=== PATIENT | male | born 1965 | race American Indian/Alaskan Native ===

== ENCOUNTER 2018-03-22 00:51 | Emergency (ER) | payer MEDICARE, MEDICAID ==
[2018-03-22 02:26] VITALS: BP 124/87
[2018-03-22 04:29] LABS: Bilirubin,Urine NEG (Negative); Blood,Urine NEG (Negative); Color,Urine Yellow (Yellow); Mucus,Urine FEW /HPF; Protein,Urine <15 mg/dL mg/dL (Negative); Urobilinogen,Urine < 2.0 mg/dL (<2.0)
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
[2018-03-22] MEDS ORDERED: TORADOL IM ONE (05:38)
== END 2018-03-22 06:07 | disposition home or self-care (01) ==
LOC: ED 00:51
DX: G89.29 Other chronic pain (principal); M54.9 Dorsalgia, unspecified; R51 Headache; I10 Essential (primary) hypertension; E78.00 Pure hypercholesterolemia, unspecified; Z87.891 Personal history of nicotine dependence
CPT/HCPCS: 81001; 96372; 99283; J1885

== ENCOUNTER 2021-04-26 12:29 | Inpatient (IN) | payer MEDICARE ==
[2021-04-26] MEDS ORDERED: IBUPROFEN 600 MG TAB PO ONE (13:32)
[2021-04-26 14:13] LABS: Basophils # (Auto) 0.1 K/mm3 (0.0-0.1); Basophils % (Auto) 0.7 % (0.0-1.8); Eosinophils # (Auto) 0.1 K/mm3 (0.0-0.4); Eosinophils % (Auto) 1.1 % (0.0-4.3); Hematocrit 40.2 % (35.5-45.6); Hemoglobin 13.7 gm/dl (11.8-15.2); Lymphocytes # (Auto) 1.7 K/mm3 (1.2-5.4); Lymphocytes % (Auto) 16.4 % (13.4-35.0); Mean Corpuscular HGB Conc 34 % (32-34); Mean Corpuscular Volume 81 fl (84-94); Monocytes # (Auto) 0.5 K/mm3 (0.0-0.8); Monocytes % (Auto) 4.9 % (0.0-7.3); Platelet Count 393 K/mm3 (140-440); Red Blood Count 4.96 M/mm3 (3.65-5.03); Red Cell Distribution Width 15.8 % (13.2-15.2)
--- NOTE | 2021-04-26 15:08 | Event Note ---
ED Screening Note Date of service: 04/26/21 Time: 14:00 ED Screening Note: Patient is a 55-year-old -[place] Citizen male with a history of hyperlipidemia and chronic left foot ulcerated wound who presents to the ED with acute exacerbation of his chronic left foot pain and swelling with purulent discharge for the last 1 week, worse in the last 2 days. Patient states that he was initially evaluated by his primary care physician who advised her to come to the ED because of the worsening swelling and pain of left foot with significant discoloration. Patient denies traumatic injury, fever, chills, nausea, vomiting, diarrhea, numbness and tingling or weakness of left foot, heavy lifting, chest pain or shortness of breath. This initial assessment/diagnostic orders/clinical plan/treatment(s) is/are subject to change based on patients health status, clinical progression and re-assessment by fellow clinical providers in the ED. Further treatment and workup at subsequent clinical providers discretion. Patient/guardian urged not to elope from the ED as their condition may be serious if not clinically assessed and managed. Initial orders include: CBC, CMP, lactic acid, left foot x-ray, left ankle x-ray
--- NOTE | 2021-04-26 21:31 | Emergency Department Report ---
ED Extremity Problem HPI - General Chief complaint: Extremity Problem,Nontraumatic Stated complaint: LT FOOT INFECTION Time Seen by Provider: 04/26/21 21:24 Source: patient Mode of arrival: Wheelchair Limitations: No Limitations - History of Present Illness Initial comments: Patient is a 55-year-old male who presents emergency room with complaints of le ft foot swelling. Patient's left foot swelling been going on for 3 weeks. Patient states it is worsening. Patient states the left foot is warm to touch and is having extreme pain. Patient states the pain is from his upper ankle down to his foot. Patient states that his primary care evaluate him today and sent him here to be evaluated. Patient states the pain is an 8 out of 10. He states the pain is better with rest and worse with movement and palpation. Patient denies fever or chills. Patient denies nausea vomiting. Patient denies calf. Patient denies chest pain or shortness of breath. Patient denies recent travel. Patient denies recent international travel. Patient denies exposure to the novel coronavirus. Patient denies sick contacts. Patient denies fever and chills. Patient denies cough. Patient denies diarrhea. Patient denies coming in contact with anybody with symptoms of the novel coronavirus. MD Complaint: extremity pain, extremity swelling -: Sudden Location: left, lower extremity History of Same: No Radiation: none Severity scale (0 -10): 8 Quality: stabbing Consistency: constant Improves with: rest Worsens with: weight bearing, walking, palpation Associated Symptoms: denies other symptoms. denies: chest pain, shortness of breath, fever, myalgias, arthralgias, rash - Related Data Previous Rx's Medication Instructions Recorded Last Taken Type Acetaminophen/Codeine [Tylenol #3] 1 tab PO Q6H PRN #20 tab 10/29/15 Unknown Rx Sulfamethoxazole/Trimethoprim 1 each PO BID #20 tablet 10/29/15 Unknown Rx [Bactrim DS TAB] cephALEXin [Keflex] 500 mg PO Q12HR #20 cap 10/29/15 Unknown Rx Ibuprofen [Motrin 800 MG tab] 800 mg PO Q8HR PRN #30 tablet 03/22/18 Unknown Rx Allergies Allergy/AdvReac Type Severity Reaction Status Date / Time No Known Allergies Allergy Unverified 12/25/14 09:12 ED Review of Systems ROS: Stated complaint: LT FOOT INFECTION Other details as noted in HPI Constitutional: denies: chills, fever Eyes: denies: eye pain, eye discharge, vision change ENT: denies: ear pain, throat pain Respiratory: denies: cough, shortness of breath, wheezing Cardiovascular: denies: chest pain, palpitations Endocrine: no symptoms reported Gastrointestinal: denies: abdominal pain, nausea, diarrhea Genitourinary: denies: urgency, dysuria Musculoskeletal: as per HPI. denies: back pain, joint swelling, arthralgia Skin: denies: rash, lesions Neurological: denies: headache, weakness, paresthesias Psychiatric: denies: anxiety, depression Hematological/Lymphatic: denies: easy bleeding, easy bruising ED Past Medical Hx - Past Medical History Previous Medical History?: Yes Additional medical history: High cholesterol - Surgical History Past Surgical History?: No - Family History Family history: no significant - Social History Smoking Status: Current Every Day Smoker Substance Use Type: None - Medications Home Medications: Home Medications Medication Instructions Recorded Confirmed Last Taken Type Acetaminophen/Codeine [Tylenol #3] 1 tab PO Q6H PRN #20 tab 10/29/15 Unknown Rx Sulfamethoxazole/Trimethoprim 1 each PO BID #20 tablet 10/29/15 Unknown Rx [Bactrim DS TAB] cephALEXin [Keflex] 500 mg PO Q12HR #20 cap 10/29/15 Unknown Rx Ibuprofen [Motrin 800 MG tab] 800 mg PO Q8HR PRN #30 tablet 03/22/18 Unknown Rx ED Physical Exam - General Limitations: No Limitations General appearance: alert, in no apparent distress - Head Head exam: Present: atraumatic, normocephalic - Eye Eye exam: Present: normal appearance - ENT ENT exam: Present: mucous membranes moist - Neck Neck exam: Present: normal inspection - Respiratory Respiratory exam: Present: normal lung sounds bilaterally. Absent: respiratory distress - Cardiovascular Cardiovascular Exam: Present: regular rate, normal rhythm. Absent: systolic murmur, diastolic murmur, rubs, gallop - GI/Abdominal GI/Abdominal exam: Present: soft, normal bowel sounds - Rectal Rectal exam: Present: deferred - Extremities Exam Extremities exam: Present: normal inspection (Except for left lower extremity), tenderness (Tenderness to palpation to the left foot and ankle), pedal edema (On left) - Back Exam Back exam: Present: normal inspection - Neurological Exam Neurological exam: Present: alert, oriented X3 - Psychiatric Psychiatric exam: Present: normal affect, normal mood - Skin Skin exam: Present: warm, dry, intact, normal color. Absent: rash ED Course Vital Signs 04/26/21 04/26/21 04/26/21 13:22 21:45 23:00 Temperature 98.4 F Pulse Rate 108 H 107 H 107 H Respiratory 18 18 20 Rate Blood Pressure 163/101 Blood Pressure 135/93 150/97 [Left] O2 Sat by Pulse 95 98 99 Oximetry 04/27/21 00:17 Temperature Pulse Rate 106 H Respiratory 20 Rate Blood Pressure Blood Pressure 130/93 [Left] O2 Sat by Pulse 97 Oximetry - Reevaluation(s) Reevaluation #1: I discussed all results with patient. I discussed plan of care with patient. Patient agrees with plan of care and admission. Patient to be admitted to the ospitalist service. Patient will be given Dilaudid. Patient given Zosyn and Vanco IV. 04/27/21 00:03 - Consultations Consultation #1: Hospitalist consulted for admission. Hospitalist to admit patient. 04/27/21 00:03 ED Medical Decision Making - Lab Data Result diagrams: 04/26/21 13:59 04/26/21 13:59 - Radiology Data Radiology results: report reviewed, image reviewed EXAMINATION: Left ankle radiograph, 3 views, 04/26/2021 CLINICAL INFORMATION: Left ankle pain and swelling. Evaluate for osteomyelitis. COMPARISON: None. FINDINGS: There are marked erosive changes of the distal tibia and fibula and midfoot with associated soft tissue swelling. IMPRESSION: 1. Extensive erosive changes of the left ankle. Osteomyelitis would be a consideration. DUPLEX DOPPLER LOWER EXTREMITY VEINS, LEFT INDICATION: Left lower extremity pain. TECHNIQUE: Duplex doppler imaging was performed through the veins of the left lower extremity using venous compression and other maneuvers. COMPARISON: None FINDINGS: Common Femoral vein: Negative. Superficial Femoral vein: Negative. Popliteal vein: Negative. Calf veins: Negative. Additional findings: Prominent lymph nodes are noted in the left inguinal region. The largest measures 3.2 x 1.7 cm in short axis IMPRESSION: 1. No sonographic evidence for DVT in the left lower extremity. - Medical Decision Making Patient is a 55-year-old male who comes emergency room with complaints of left foot and ankle pain. Patient states the pain to be gone for 3 weeks. Patient states his pain is swelling is worsening. Patient states primary care sent him for evaluation. Patient had labs done which were essentially unremarkable. Patient had an x-ray shows findings consistent with osteomyelitis. Patient had an ultrasound to rule out a DVT and it was negative for DVT. Patient given broad-spectrum antibiotics to cover osteomyelitis of Zosyn and bank. Patient given fluids. Patient given pain medications. Patient's vital signs are stable in the ER. Patient had blood cultures done. Patient admitted to the hospital service for further evaluation treatment Critical care time documented due to the multiple reassessments, prolonged time at the bedside, interpretation of diagnostics and labs. - Differential Diagnosis Cellulitis, foot pain, ankle pain, DVT, osteomyelitis, fracture, strain, Critical Care Time: Yes Critical care time in (mins) excluding proc time.: 35 Critical care attestation.: If time is entered above; I have spent that time in minutes in the direct care of this critically ill patient, excluding procedure time. Critical Care Time: 35 MINUTES ED Disposition Clinical Impression: Foot pain, left, Swelling of left lower extremity Left ankle pain Qualifiers: Chronicity: acute Qualified Code(s): M25.572 - Pain in left ankle and joints of left foot Osteomyelitis Qualifiers: Osteomyelitis type: unspecified type Osteomyelitis location: ankle Laterality: left Qualified Code(s): M86.9 - Osteomyelitis, unspecified Disposition: OP ADMIT IP TO THIS HOSP Is pt being admited?: Yes Does the pt Need Aspirin: No Condition: Critical Time of Disposition: 23:44
--- NOTE | 2021-04-26 23:17 | Vascular Lab Report ---
DUPLEX DOPPLER LOWER EXTREMITY VEINS, LEFT INDICATION: Left lower extremity pain. TECHNIQUE: Duplex doppler imaging was performed through the veins of the left lower extremity using venous compr ession and other maneuvers. COMPARISON: None FINDINGS: Common Femoral vein: Negative. Superficial Femoral vein: Negative. Popliteal vein: Negative. Calf veins: Negative. Additional findings: Prominent lymph nodes are noted in the left inguinal region. The largest measure s 3.2 x 1.7 cm in short axis IMPRESSION: 1. No sonographic evidence for DVT in the left lower extremity. Signer Name: Rosanne Martinez MD Signed: 04/26/2021 11:12 PM Workstation Name: [id number]
--- NOTE | 2021-04-26 23:35 | XRay Report ---
EXAMINATION: Left ankle radiograph, 3 views, 04/26/2021 CLINICAL INFORMATION: Left ankle pain and swelling. Evaluate for osteomyelitis. COMPARISON: None. FINDINGS: There are marked erosive changes of the distal tibia and fibula and midfoot with associated soft tissue swelling. IMPRESSION: 1. Extensive erosive changes of the left ankle. Osteomyelitis would be a consideration. Signer Name: Rosanne Martinez MD Signed: 04/26/2021 11:30 PM Workstation Name: [id number]
--- NOTE | 2021-04-26 23:36 | XRay Report ---
EXAMINATION: Left foot radiograph, 3 views, 04/26/2021 CLINICAL INFORMATION: Left foot and ankle pain and swelling. Evaluate for osteomyelitis. COMPARISON: Left ankle radiograph, 3 views FINDINGS: There are marked erosive changes of the distal tibia and fibula and mid foot with associate d soft tissue swelling IMPRESSION: 1. Erosive changes of the left foot and ankle with associated soft tissue swelling. Osteomyelitis wo uld be a consideration. Signer Name: Rosanne Martinez MD Signed: 04/26/2021 11:31 PM Workstation Name: [id number]
[2021-04-26] MEDS ORDERED: SODIUM CHLORIDE 0.9% 500 ML 500 ML IV ONE (23:47)
[2021-04-26] MEDS ORDERED: HYDROmorphone 1 MG/1 ML INJ IV ONE (23:47)
[2021-04-26] MEDS ORDERED: ONDANSETRON 4 MG/2 ML INJ IV ONE (23:47)
[2021-04-27] MEDS ORDERED: VANCOMYCIN/NS 1 GM/250 ML 1 GM/250 ML BAG IV ONE (00:02)
[2021-04-27] MEDS ORDERED: PIPERACIL/TAZOBACTA 4.5/NS 100 4.5 GM/100 ML VIAL IV ONE (00:02)
--- NOTE | 2021-04-27 00:25 | History and Physical Report ---
History of Present Illness Date of examination: 04/27/21 Date of admission: 04/26/21 Chief complaint: left foot pain and infection History of present illness: Patient is a 55-year-old male who presents emergency room with complaints of left foot swelling. Patient's left foot swelling been going on for 3 weeks. Patient states it is worsening. Patient states the left foot is warm to touch and is having extreme pain. Patient states the pain is from his upper ankle down to his foot. Patient states that his primary care evaluate him today and sent him here to be evaluated. Patient states the pain is an 8 out of 10. He states the pain is better with rest and worse with movement and palpation. Patient denies fever or chills. Patient denies nausea vomiting. Patient denies calf. Patient denies chest pain or shortness of breath. ED work-up shows a WBC 10.6 hemoglobin 13.7 platelets 393 hemoglobin A1c 6.3 and lactic acid 1.8. Patient seen in ED at bedside. He reported pain level of 10/10 on his left ankle and foot. Patient is started on vancomycin and Zosyn ID consulted. Patient reported a saw that he had surgery on the left ankle 2013 and 2015. I reviewed the patient medical record vital signs and the medication record.Left foot x-ray done showed erosive changes of the left foot and ankle with soft tissue swelling. X-ray of the ankle left showed also extensive erosive changes possible osteomyelitis considered. Past History Past Medical History: hyperlipidemia Past Surgical History: total knee replacement Social history: smoking Family history: diabetes, hypertension Medications and Allergies Allergies Allergy/AdvReac Type Severity Reaction Status Date / Time No Known Allergies Allergy Unverified 12/25/14 09:12 Home Medications Medication Instructions Recorded Confirmed Last Taken Type Acetaminophen/Codeine [Tylenol #3] 1 tab PO Q6H PRN #20 tab 10/29/15 04/27/21 Unknown Rx Sulfamethoxazole/Trimethoprim 1 each PO BID #20 tablet 10/29/15 04/27/21 Unknown Rx [Bactrim DS TAB] cephALEXin [Keflex] 500 mg PO Q12HR #20 cap 10/29/15 04/27/21 Unknown Rx Ibuprofen [Motrin 800 MG tab] 800 mg PO Q8HR PRN #30 tablet 03/22/18 04/27/21 Unknown Rx Active Meds: Active Medications Piperacillin Sod/Tazobactam Sod (Zosyn/Ns 4.5gm/100ml) 4.5 gm in 100 mls @ 200 mls/hr IV ONCE ONE; Protocol Stop: 04/27/21 00:31 Vancomycin HCl (Vancomycin/Ns 1 Gm/250 Ml) 1 gm in 250 mls @ 167.007 mls/hr IV ONCE ONE; Protocol Stop: 04/27/21 01:31 Review of Systems Ears, nose, mouth and throat: no epistaxis, no bleeding gums Cardiovascular: no chest pain Respiratory: no wheezing Gastrointestinal: no melena Genitourinary Male: no dysuria Rectal: no itching, no hemorrhoids Musculoskeletal: other (left foot/ankle pain) Integumentary: no rash, no pruritis Neurological: no head injury Hematologic/Lymphatic: no easy bruising, no easy bleeding Allergic/Immunologic: no urticaria Exam - Constitutional Vitals: Temp Pulse Resp BP Pulse Ox 98.4 F 106 H 20 130/93 97 04/26/21 13:22 04/27/21 00:17 04/27/21 00:17 04/27/21 00:17 04/27/21 00:17 General appearance: Present: mild distress, obese - EENT Eyes: Present: PERRL ENT: hearing intact, clear oral mucosa - Neck Neck: Present: supple, normal ROM - Respiratory Respiratory effort: normal Respiratory: bilateral: CTA - Cardiovascular Heart Sounds: Present: S1 & S2. Absent: rub, click - Extremities Extremities: pulses symmetrical, No edema Peripheral Pulses: within normal limits - Abdominal General gastrointestinal: Present: soft, non-tender, non-distended, normal bowel sounds Male genitourinary: Present: normal - Integumentary Integumentary: Present: clear, warm, dry - Musculoskeletal Musculoskeletal: strength equal bilaterally, generalized weakness - Psychiatric Psychiatric: appropriate mood/affect, intact judgment & insight, cooperative - Neurologic Neurologic: CNII-XII intact, moves all extremities - Allied Health Allied health notes reviewed: nursing Results - Labs CBC & Chem 7: 04/26/21 13:59 04/26/21 13:59 Labs: Abnormal lab results 04/26/21 Range/Units 13:59 MCV 81 L (84-94) fl RDW 15.8 H (13.2-15.2) % Seg Neutrophils % 76.9 H (40.0-70.0) % Seg Neutrophils # 8.1 H (1.8-7.7) K/mm3 Assessment and Plan - Patient Problems (1) Osteomyelitis Current Visit: Yes Status: Acute Qualifiers: Osteomyelitis type: unspecified type Osteomyelitis location: ankle Laterality: left Qualified Code(s): M86.9 - Osteomyelitis, unspecified Plan to address problem: Started on vancomycin and Zosyn Blood culture follow-up with result ID consult Left foot x-ray done showed erosive changes of the left foot and ankle with soft tissue swelling. X-ray of the ankle left showed also extensive erosive changes possible osteomyelitis considered. (2) Hyperlipidemia Current Visit: Yes Status: Acute Plan to address problem: Patient has a history of hyperlipidemia Resume statin Checked hemoglobin A1c - 6.3 (3) Left ankle pain Current Visit: Yes Status: Acute Qualifiers: Chronicity: acute Qualified Code(s): M25.572 - Pain in left ankle and joints of left foot Plan to address problem: Pain management as needed Bilateral leg ultrasound done no acute finding/DVT (4) Full code status Current Visit: Yes Status: Acute Plan to address problem: Patient is a full code (5) DVT prophylaxis Current Visit: Yes Status: Acute Plan to address problem: Subcutaneous heparin
[2021-04-27] MEDS ORDERED: ACETAMINOPHEN 325 MG TAB PO PRN (00:29)
[2021-04-27] MEDS ORDERED: ONDANSETRON 4 MG/2 ML INJ IV PRN (00:29)
[2021-04-27] MEDS ORDERED: ALUM-MAG HYDROXIDE-SIMETHICONE 200-200-20MG/5ML ORAL LIQD 30 ML PO PRN (00:29)
[2021-04-27] MEDS ORDERED: MAGNESIUM HYDROXIDE (MOM) ORAL LIQD UDC PO PRN (00:29)
[2021-04-27] MEDS ORDERED: hydrALAZINE 20 MG/1 ML INJ IV PRN (00:33)
[2021-04-27] MEDS ORDERED: traMADol 50 MG TAB PO PRN (00:33)
[2021-04-27] MEDS ORDERED: VANCOMYCIN 2,000 MG in SODIUM CHLORIDE 0.9% 500 ML 500 ML IV ONE (02:45)
[2021-04-27] MEDS: traZODone 50 MG TAB PO PRN (02:55)
[2021-04-27] MEDS ORDERED: MORPHINE 2 MG/1 ML INJ IV ONE (03:42)
[2021-04-27] MEDS: HYDROmorphone 1 MG/1 ML INJ IV PRN ×4 (11:02→21:16)
[2021-04-27] MEDS: HEPARIN 5,000 UNIT/1 ML VIAL SUB-Q SCH ×2 (11:04→21:16)
--- NOTE | 2021-04-27 15:31 | Consultation ---
History of Present Illness Consult date: 04/27/21 - History of present illness History of present illness: 55 year old male presents to ED with left angle and foot pain and swelling. He says it has been like this for the last several weeks, but says he gets pain and swelling off and on for year since he had left foot and ankle surgery where he says pins were placed and he had a complicated post op course with a wound that was difficult to close. What he says is new and unusual compared to previous fla re ups is the skin on his foot and ankle became dark. He had duplex studies and xrays done ED that showed osteomyelitis and no signs of DVT. Past History Past Medical History: hyperlipidemia Past Surgical History: total knee replacement Social history: smoking Family history: diabetes, hypertension Medications and Allergies Allergies Allergy/AdvReac Type Severity Reaction Status Date / Time No Known Allergies Allergy Unverified 12/25/14 09:12 Home Medications Medication Instructions Recorded Confirmed Last Taken Type Acetaminophen/Codeine [Tylenol #3] 1 tab PO Q6H PRN #20 tab 10/29/15 04/27/21 Unknown Rx Sulfamethoxazole/Trimethoprim 1 each PO BID #20 tablet 10/29/15 04/27/21 Unknown Rx [Bactrim DS TAB] cephALEXin [Keflex] 500 mg PO Q12HR #20 cap 10/29/15 04/27/21 Unknown Rx Ibuprofen [Motrin 800 MG tab] 800 mg PO Q8HR PRN #30 tablet 03/22/18 04/27/21 Unknown Rx Active Meds: Active Medications Acetaminophen (Acetaminophen 325 Mg Tab) 650 mg PO Q4H PRN PRN Reason: Pain MILD(1-3)/Fever >100.5/MCNALLY Al Hydrox/Mg Hydrox/Simethicone (Alum-Mag Hydroxide-Simethicone [id number]/5ml Oral Liqd 30 Ml) 30 ml PO Q4H PRN PRN Reason: Indigestion Atorvastatin Calcium (Atorvastatin 40 Mg Tab) 40 mg PO QHS [facility] Heparin Sodium (Porcine) (Heparin 5,000 Unit/1 Ml Vial) 5,000 unit SUB-Q Q12HR [facility] Last Admin: 04/27/21 11:04 Dose: 5,000 unit Documented by: Hydralazine HCl (Hydralazine 20 Mg/1 Ml Inj) 5 mg IV Q4H PRN PRN Reason: Hypertension Hydromorphone HCl (Hydromorphone 1 Mg/1 Ml Inj) 0.5 mg IV Q3H PRN PRN Reason: Pain , Severe (7-10) Last Admin: 04/27/21 14:41 Dose: 0.5 mg Documented by: Magnesium Hydroxide (Magnesium Hydroxide (Mom) Oral Liqd Udc) 30 ml PO Q4H PRN PRN Reason: Constipation Last Admin: 04/27/21 11:08 Dose: 30 ml Documented by: Ondansetron HCl (Ondansetron 4 Mg/2 Ml Inj) 4 mg IV Q8H PRN PRN Reason: Nausea And Vomiting Sodium Chloride (Sodium Chloride 0.9% 10 Ml Flush Syringe) 10 ml IV PRN PRN PRN Reason: LINE FLUSH Tramadol HCl (Tramadol 50 Mg Tab) 50 mg PO Q4H PRN PRN Reason: Pain, Moderate (4-6) Trazodone HCl (Trazodone 50 Mg Tab) 50 mg PO QHS PRN PRN Reason: Insomnia Last Admin: 04/27/21 02:55 Dose: 50 mg Documented by: Review of Systems All systems: negative - Muskuloskeletal left: ankle pain, ankle swelling, foot stiffness, foot pain, foot swelling Exam Vital Signs Temp Pulse Resp BP Pulse Ox 98.4 F 108 H 18 163/101 95 04/26/21 13:22 04/26/21 13:22 04/26/21 13:22 04/26/21 13:22 04/26/21 13:22 - General physical appearance Positive: well developed, well nourished, no distress, moderate pain - Respiratory Positive: normal expansion, normal respiratory effort - Cardiovascular Heart Sounds: Present: S1 & S2 - Extremities Extremities: abnormal Extremity abnormal: other (left ankle and foot with gross swelling deformity and woody skin changes. Warm with sensation and motor intact although he says he has not been able to move his toes well since the pins were place. Skin is hyperpigmented compared to surrounding skin. No fluctuance appreciated.) - Abdomen Abdomen: Present: soft. Absent: tender Results - Labs 04/26/21 13:59 04/26/21 13:59 Abnormal lab results 04/26/21 Range/Units 13:59 Hemoglobin A1c 6.3 H (4-6) % Diabetes panel 04/26/21 Range/Units 13:59 Hemoglobin A1c 6.3 H (4-6) % Assessment and Plan 55 year old male with left foot and ankle swelling with x-rays suggestive of osteomyelitis. Afebrile and stable with no leukocytosis. Will get CT of LLE for better evaluation of tissues. Will consult Dr. Paul on Thursday to evaluate for possible amputation and recommend any other treatment options.
--- NOTE | 2021-04-27 16:43 | Event Note ---
Date: 04/27/21 Patient seen and examined Continue to complains of left ankle pain and swelling Left ankle x-ray suggestive of osteomyelitis Infectious disease and general surgery has been consulted Order for CT of the lower extremity Continue empiric antibiotics and follow ID recommendation
--- NOTE | 2021-04-27 19:02 | Cat Scan Report ---
CT LEFT ANKLE WITH CONTRAST INDICATION / CLINICAL INFORMATION: left ankle pain and swelling POST OP 2016 BEEN HAVING ISSUES SINCE OMNIPAQUE 300 100ML. TECHNIQUE: All CT scans at this location are performed using CT dose reduction for ALARA by means of automated e xposure control. Imaging performed status post administration of 100 cc Omnipaque 300 intravenous con trast. COMPARISON: Ankle radiographs from 04/26/2021 FINDINGS: Complete osseous destruction of the ankle joint including the distal tibia and fibula at the level of the metaphysis, as well as the entire talus and much of the anterior calcaneus. In this region there is an approximately 7 x 6 x 5 cm complex collection with some surrounding osseous fragments and a th ick wall of surrounding soft tissue. There is also considerable erosive change involving the navicula r and, to a lesser degree, the other tarsal bones. The metatarsals and forefoot bones appear intact. Loculated fluid appears to extend along the medial midfoot osseous structures to the level of the fir st metatarsal base. Incidentally visualized right foot structures demonstrate no significant abnormal ity. Soft tissue structures demonstrate moderate medial and lateral ankle edema, as well as mild edema in the soft tissues of the lower leg. Subcutaneous irregularity at the medial malleolus may represent ul ceration.. IMPRESSION: 1. Essentially complete destruction of the ankle joint and adjacent osseous structures which are repl aced by a large heterogeneous fluid collection, as described above. Findings are concerning for advan suzy osteomyelitis/septic arthritis. Signer Name: Saturnino Newsome MD Signed: 04/27/2021 6:58 PM Workstation Name: [id number]
[2021-04-28] MEDS: traZODone 50 MG TAB PO PRN ×2 (00:21→22:05)
[2021-04-28] MEDS: HYDROmorphone 1 MG/1 ML INJ IV PRN ×5 (04:18→20:09)
[2021-04-28 08:41] LABS: Basophils % (Auto) 0.6 % (0.0-1.8); Eosinophils # (Auto) 0.2 K/mm3 (0.0-0.4); Eosinophils % (Auto) 3.5 % (0.0-4.3); Hemoglobin 12.2 gm/dl (11.8-15.2); Lymphocytes # (Auto) 1.9 K/mm3 (1.2-5.4); Lymphocytes % (Auto) 29.1 % (13.4-35.0); Mean Corpuscular HGB Conc 34 % (32-34); Mean Corpuscular Volume 82 fl (84-94); Monocytes # (Auto) 0.5 K/mm3 (0.0-0.8); Monocytes % (Auto) 6.9 % (0.0-7.3); Platelet Count 360 K/mm3 (140-440); Red Blood Count 4.41 M/mm3 (3.65-5.03); Red Cell Distribution Width 15.3 % (13.2-15.2)
[2021-04-28 08:43] LABS: Alanine Aminotransferase 16 units/L (7-56); Albumin 3.6 g/dL (3.9-5); Blood Urea Nitrogen 8 mg/dL (9-20); Calcium 9.4 mg/dL (8.4-10.2); Hemolysis Index 4
[2021-04-28] MEDS: HEPARIN 5,000 UNIT/1 ML VIAL SUB-Q SCH ×3 (08:47→22:05)
[2021-04-28 08:51] LABS: BUN/Creatinine Ratio 13
--- NOTE | 2021-04-28 11:45 | Consultation ---
History of Present Illness - HPI Consult date: 04/28/21 Consult reason: joint pain History of present illness: 55-year-old male with a history of left ankle swelling for the past several years, states had surgery for fx ankle '16 subsequently had hardware removed because of infection, never completely healed since then. Treated with various braces and splints which became uncomfortable and therefore unusable. denies diabetes but states mom and female relatives all have DM... Past History Past Medical History: hyperlipidemia Past Surgical History: total knee replacement Social history: smoking Family history: diabetes, hypertension Medications and Allergies Allergies Allergy/AdvReac Type Severity Reaction Status Date / Time No Known Allergies Allergy Unverified 12/25/14 09:12 Home Medications Medication Instructions Recorded Confirmed Last Taken Type Acetaminophen/Codeine [Tylenol #3] 1 tab PO Q6H PRN #20 tab 10/29/15 04/27/21 Unknown Rx Sulfamethoxazole/Trimethoprim 1 each PO BID #20 tablet 10/29/15 04/27/21 Unknown Rx [Bactrim DS TAB] cephALEXin [Keflex] 500 mg PO Q12HR #20 cap 10/29/15 04/27/21 Unknown Rx Ibuprofen [Motrin 800 MG tab] 800 mg PO Q8HR PRN #30 tablet 03/22/18 04/27/21 Unknown Rx Active Meds: Active Medications Acetaminophen (Acetaminophen 325 Mg Tab) 650 mg PO Q4H PRN PRN Reason: Pain MILD(1-3)/Fever >100.5/MCNALLY Al Hydrox/Mg Hydrox/Simethicone (Alum-Mag Hydroxide-Simethicone [phone]/5ml Oral Liqd 30 Ml) 30 ml PO Q4H PRN PRN Reason: Indigestion Atorvastatin Calcium (Atorvastatin 40 Mg Tab) 40 mg PO QHS [facility] Last Admin: 04/27/21 21:16 Dose: 40 mg Documented by: Heparin Sodium (Porcine) (Heparin 5,000 Unit/1 Ml Vial) 5,000 unit SUB-Q Q12HR [facility] Last Admin: 04/28/21 11:15 Dose: Not Given Documented by: Hydralazine HCl (Hydralazine 20 Mg/1 Ml Inj) 5 mg IV Q4H PRN PRN Reason: Hypertension Hydromorphone HCl (Hydromorphone 1 Mg/1 Ml Inj) 0.5 mg IV Q3H PRN PRN Reason: Pain , Severe (7-10) Last Admin: 04/28/21 09:21 Dose: 0.5 mg Documented by: Magnesium Hydroxide (Magnesium Hydroxide (Mom) Oral Liqd Udc) 30 ml PO Q4H PRN PRN Reason: Constipation Last Admin: 04/27/21 11:08 Dose: 30 ml Documented by: Ondansetron HCl (Ondansetron 4 Mg/2 Ml Inj) 4 mg IV Q8H PRN PRN Reason: Nausea And Vomiting Sodium Chloride (Sodium Chloride 0.9% 10 Ml Flush Syringe) 10 ml IV PRN PRN PRN Reason: LINE FLUSH Last Admin: 04/27/21 21:17 Dose: 10 ml Documented by: Tramadol HCl (Tramadol 50 Mg Tab) 50 mg PO Q4H PRN PRN Reason: Pain, Moderate (4-6) Trazodone HCl (Trazodone 50 Mg Tab) 50 mg PO QHS PRN PRN Reason: Insomnia Last Admin: 04/28/21 00:21 Dose: 50 mg Documented by: Physical Examination - Physical exam Narrative exam: left leg - + deformity, hypertrophic dark skin, no drainage, no redness plain xrays show findings suggestive Charcot's Joint... Eyes: PERRL ENT: Positive: clear oral mucosa Respiratory effort: normal Respiratory: bilateral: CTA Rhythm: regular Heart Sounds: Positive: S1 & S2 General gastrointestinal: Positive: soft, non-tender, non-distended, normal bowel sounds Integumentary: clear, warm, dry Neurologic: Positive: CNII-XII intact, moves all extremities, gait normal. Negative: focal deficits Assessment and Plan left ankle swelling, most likely non-infectious would order EMG-NCV study to r/o diabetic neuropathy with Charcot's joint
--- NOTE | 2021-04-28 13:13 | Event Note ---
Date: 04/28/[address] Saturnino Mistry (orthopedic surgeon) to see this patient, as CT scan did not show any discrete infection or abscess collection. Per Dr. Mistry's evaluation he believes the patient likely has Charcot's joint or septic arthritis. Dr. Mistry discussed with the patient the option of potential amputation, and at this time the patient says he is not interested. Dr. Mistry said that the patient will need a special orthopedic boot and other potential work-up. No general surgery intervention is indicated. We will sign off.
--- NOTE | 2021-04-28 14:34 | Progress Note ---
Assessment and Plan -- Osteomyelitis with possible septic arthritis Blood culture negative Left foot x-ray done showed erosive changes of the left foot and ankle with soft tissue swelling. X-ray of the ankle left showed also extensive erosive changes possible osteomyelitis considered. CT scan of left ankle suggestive of possible septic arthritis with osteomyelitis Orthopedic and general surgery recommended no surgical intervention as this changes are apparently chronic ID consulted and recommended left ankle arthrocentesis and to hold antibiotics for now Consulted IR for arthrocentesis -- Hyperlipidemia Patient has a history of hyperlipidemia Resume statin Checked hemoglobin A1c - 6.3 -- Left ankle pain Pain management as needed Bilateral leg ultrasound done no acute finding/DVT --Full code status -- DVT prophylaxis Daily clinical Course; 04/28/21: CT scan of left ankle suggestive for complete destruction of left ankle joint with suggestive change of septic arthritis and osteomyelitis. Appreciate orthopedic and general surgery recommendation. Per Dr. Mistry patient might have Charcot joint. planned for arthrocentesis to rule out infectious process by ID. We will hold on empiric antibiotics for now. Subjective Date of service: 04/28/21 Interval history: Patient seen and examined. Medical records and medication list reviewed. No acute event overnight noted by the RN. Patient denies any chest pain or difficulty breathing. Patient is tolerating diet. Continues to complains of left ankle pain Discussed plan of care at bedside with patient. Objective - Exam Narrative Exam: General appearance: Present: mild distress, obese - EENT Eyes: Present: PERRL ENT: hearing intact, clear oral mucosa - Neck Neck: Present: supple, normal ROM - Respiratory Respiratory effort: normal Respiratory: bilateral: CTA - Cardiovascular Heart Sounds: Present: S1 & S2. Absent: rub, click - Extremities Extremities: pulses symmetrical, No edema. left LE: ankle pain, ankle swelling, foot stiffness, foot pain, foot swelling Peripheral Pulses: within normal limits - Abdominal General gastrointestinal: Present: soft, non-tender, non-distended, normal bowel sounds Male genitourinary: Present: normal - Integumentary Integumentary: Present: clear, warm, dry - Musculoskeletal Musculoskeletal: strength equal bilaterally, generalized weakness - Psychiatric Psychiatric: appropriate mood/affect, intact judgment & insight, cooperative - Neurologic Neurologic: CNII-XII intact, moves all extremities - Allied Health Allied health notes reviewed: nursing - Constitutional Vitals: Vital Signs - 12hr 04/28/21 04/28/2104/28/21 04:18 04:48 04:54 Temperature 97.5 F L Pulse Rate 93 H Respiratory 17 17 20 Rate Blood Pressure 124/86 O2 Sat by Pulse 100 Oximetry 04/28/21 04/28/21 07:51 11:15 Temperature 98.4 F 98.2 F Pulse Rate 88 99 H Respiratory 18 18 Rate Blood Pressure 131/79 148/86 O2 Sat by Pulse 97 100 Oximetry - Labs CBC & Chem 7: 04/28/21 08:10 04/28/21 08:10 Labs: Abnormal lab results 04/28/21 04/28/21 Range/Units 08:10 08:10 MCV 82 L (84-94) fl RDW 15.3 H (13.2-15.2) % Sodium 136 L (137-145) mmol/L BUN 8 L (9-20) mg/dL Creatinine 0.6 L (0.8-1.3) mg/dL Glucose 158 H (75-100) mg/dL Albumin 3.6 L (3.9-5) g/dL
--- NOTE | 2021-04-28 15:02 | Consultation ---
History of Present Illness - Reason for Consult Consult date: 04/28/21 osteomyelitis Requesting physician: EDUARDO JERONIMO - History of Present Illness The patient is a 55-year-old male with hyperlipidemia, right total knee arthroplasty, history of left ankle hardware infection that developed after his surgical intervention by podiatry which eventually required hardware removal back in 2016 has had chronic left ankle swelling and pain which acutely worsened recently with trivial trauma while getting off a ladder. X-ray of the ankle showed erosive changes. CT scan revealed essentially complete destruction of the ankle joint and a large heterogeneous fluid collection. Patient was evaluated by orthopedics, was suspicious for Charcot joint. Infectious diseases was consulted for additional evaluation. Patient is otherwise afebrile with no leukocytosis. Review of Systems: General: no fevers,chills or rigors HEENT: no new visual disturbance Respiratory: No cough, sputum, hemoptysis or shortness of breath Cardiovascular: No chest pain, syncope Gastrointestinal: No nausea, vomiting or diarrhea Genitourinary: No dysuria or hematuria Musculoskeletal: No new or worsening neck pain or back pain. Left ankle pain Neurologic: No headaches, seizures Hematologic: No easy bruising or bleeding Endocrine: No night sweats or acute weight loss Skin: negative for rash, jaundice Psychiatric: No suicidal or homicidal ideation Past History Past Medical History: hyperlipidemia Past Surgical History: total knee replacement Social history: smoking Family history: diabetes, hypertension Medications and Allergies Allergies Allergy/AdvReac Type Severity Reaction Status Date / Time No Known Allergies Allergy Unverified 12/25/14 09:12 Home Medications Medication Instructions Recorded Confirmed Last Taken Type Acetaminophen/Codeine [Tylenol #3] 1 tab PO Q6H PRN #20 tab 10/29/15 04/27/21 Unknown Rx Sulfamethoxazole/Trimethoprim 1 each PO BID #20 tablet 10/29/15 04/27/21 Unknown Rx [Bactrim DS TAB] cephALEXin [Keflex] 500 mg PO Q12HR #20 cap 10/29/15 04/27/21 Unknown Rx Ibuprofen [Motrin 800 MG tab] 800 mg PO Q8HR PRN #30 tablet 03/22/18 04/27/21 Unknown Rx Active Meds: Active Medications Acetaminophen (Acetaminophen 325 Mg Tab) 650 mg PO Q4H PRN PRN Reason: Pain MILD(1-3)/Fever >100.5/MCNALLY Al Hydrox/Mg Hydrox/Simethicone (Alum-Mag Hydroxide-Simethicone [phone]/5ml Oral Liqd 30 Ml) 30 ml PO Q4H PRN PRN Reason: Indigestion Atorvastatin Calcium (Atorvastatin 40 Mg Tab) 40 mg PO QHS [facility] Last Admin: 04/27/21 21:16 Dose: 40 mg Documented by: Heparin Sodium (Porcine) (Heparin 5,000 Unit/1 Ml Vial) 5,000 unit SUB-Q Q12HR [facility] Last Admin: 04/28/21 11:15 Dose: Not Given Documented by: Hydralazine HCl (Hydralazine 20 Mg/1 Ml Inj) 5 mg IV Q4H PRN PRN Reason: Hypertension Hydromorphone HCl (Hydromorphone 1 Mg/1 Ml Inj) 0.5 mg IV Q3H PRN PRN Reason: Pain , Severe (7-10) Last Admin: 04/28/21 13:16 Dose: 0.5 mg Documented by: Magnesium Hydroxide (Magnesium Hydroxide (Mom) Oral Liqd Udc) 30 ml PO Q4H PRN PRN Reason: Constipation Last Admin: 04/27/21 11:08 Dose: 30 ml Documented by: Ondansetron HCl (Ondansetron 4 Mg/2 Ml Inj) 4 mg IV Q8H PRN PRN Reason: Nausea And Vomiting Sodium Chloride (Sodium Chloride 0.9% 10 Ml Flush Syringe) 10 ml IV PRN PRN PRN Reason: LINE FLUSH Last Admin: 04/27/21 21:17 Dose: 10 ml Documented by: Tramadol HCl (Tramadol 50 Mg Tab) 50 mg PO Q4H PRN PRN Reason: Pain, Moderate (4-6) Trazodone HCl (Trazodone 50 Mg Tab) 50 mg PO QHS PRN PRN Reason: Insomnia Last Admin: 04/28/21 00:21 Dose: 50 mg Documented by: Physical Examination - Physical Exam Narrative exam: Physical Exam: Constitutional: Alert, cooperative. No acute distress Head, Ears, Nose: Normocephalic, atraumatic. External ears, nose normal Eyes: Conjunctivae/corneas clear. No icterus. No ptosis. Neck: Supple, no meningeal signs Oral: dentition fair, no thrush Cardiovascular: S1, S2 normal. Respiratory: Good air entry, clear to auscultation bilaterally GI: Soft, non-tender; bowel sounds normal. No peritoneal signs Musculoskeletal: Left ankle with swelling, no significant warmth. There is hyperkeratotic skin present, no open wound. Skin: No rash or abscess Hem/Lymphatic: No palpable cervical or supraclavicular nodes. No lymphangitis Psych: Mood ok. Affect normal Neurological: Awake, alert, oriented. No gross abnormality - Constitutional Vitals: Vital Signs Temp Pulse Resp BP Pulse Ox 98.2 F 99 H 18 148/86 100 04/28/21 11:15 04/28/21 11:15 04/28/21 11:15 04/28/21 11:15 04/28/21 11:15 Temperature -Last 24 Hours Temperature 98.2 F Temperature 98.4 F Temperature 97.5 F Temperature 97.9 F Temperature 97.7 F Temperature 98.5 F Results - Labs CBC & Chem 7: 04/28/21 08:10 04/28/21 08:10 Labs: Abnormal lab results 04/28/21 04/28/21 Range/Units 08:10 08:10 MCV 82 L (84-94) fl RDW 15.3 H (13.2-15.2) % Sodium 136 L (137-145) mmol/L BUN 8 L (9-20) mg/dL Creatinine 0.6 L (0.8-1.3) mg/dL Glucose 158 H (75-100) mg/dL Albumin 3.6 L (3.9-5) g/dL Assessment and Plan Cultures: 04/27/2021 blood culture: No growth A/P: 55-year-old male with hyperlipidemia, right total knee arthroplasty admitted with: #Acute on chronic left ankle swelling with complete destruction of the ankle ira nt noted on imaging: history of left ankle hardware infection that developed after his surgical intervention by podiatry which eventually required hardware removal back in 2016 has had chronic left ankle swelling and pain which acutely worsened recently with trivial trauma while getting off a ladder. Etiology Charcot joint versus indolent chronic septic arthritis. Recs: Hold off on any antibiotics for now Consider arthrocentesis to rule out infectious process Tad Alvarez MD, FACP [facility] O: [phone] F: [phone]
[2021-04-29] MEDS: HYDROmorphone 1 MG/1 ML INJ IV PRN ×4 (01:03→21:00)
[2021-04-29] MEDS: HEPARIN 5,000 UNIT/1 ML VIAL SUB-Q SCH ×2 (09:48→20:59)
--- NOTE | 2021-04-29 12:04 | Progress Note ---
Assessment and Plan Cultures: 04/27/2021 blood culture: No growth A/P: 55-year-old male with hyperlipidemia, right total knee arthroplasty admitted with: #Acute on chronic left ankle swelling with complete destruction of the ankle joint noted on imaging: history of left ankle hardware infection that developed after his surgical intervention by podiatry which eventually required hardware removal back in 2016 has had chronic left ankle swelling and pain which acutely worsened recently with trivial trauma while getting off a ladder. Etiology Charcot joint versus indolent chronic septic arthritis. Recs: Hold off on any antibiotics for now Consider arthrocentesis to rule out infectious process Ankit Mcelroy MD [facility] ([facility] O: [phone] F: [phone] Subjective Date of service: 04/29/21 Interval history: Afebrile, normal white count. No acute change. Objective - Exam Narrative Exam: Physical Exam: Constitutional: Alert, cooperative. No acute distress Head, Ears, Nose: Normocephalic, atraumatic. External ears, nose normal Eyes: Conjunctivae/corneas clear. No icterus. No ptosis. Neck: Supple, no meningeal signs Oral: dentition fair, no thrush Cardiovascular: S1, S2 normal. Respiratory: Good air entry, clear to auscultation bilaterally GI: Soft, non-tender; bowel sounds normal. No peritoneal signs Musculoskeletal: Left ankle with swelling, no significant warmth. There is hyperkeratotic skin present, no open wound. Skin: No rash or abscess Hem/Lymphatic: No palpable cervical or supraclavicular nodes. Psych: Mood ok. Affect normal Neurological: Awake, alert, oriented. No gross abnormality - Constitutional Vitals: Vital Signs Temp Pulse Resp BP Pulse Ox 98.6 F 90 18 124/77 95 04/29/21 06:01 04/29/21 06:01 04/29/21 06:01 04/29/21 06:01 04/29/21 06:01 Temperature -Last 24 Hours Temperature 98.6 F Temperature 99.0 F Temperature 98.9 F - Labs CBC & Chem 7: 04/28/21 08:10 04/28/21 08:10
[2021-04-29] MEDS ORDERED: MIDAZOLAM 5 MG/5 ML INJ MDV IV NR (15:06)
[2021-04-29] MEDS ORDERED: fentaNYL 100 MCG/2 ML INJ IV NR (15:06)
--- NOTE | 2021-04-29 15:42 | Progress Note ---
Assessment and Plan -- Osteomyelitis with possible septic arthritis Blood culture negative Left foot x-ray done showed erosive changes of the left foot and ankle with soft tissue swelling. X-ray of the ankle left showed also extensive erosive changes possible osteomyelitis considered. CT scan of left ankle suggestive of possible septic arthritis with osteomyelitis Orthopedic and general surgery recommended no surgical intervention as this changes are apparently chronic ID consulted and recommended left ankle arthrocentesis and to hold antibiotics for now Consulted IR for arthrocentesis -- Hyperlipidemia Patient has a history of hyperlipidemia Resume statin Checked hemoglobin A1c - 6.3 -- Left ankle pain Pain management as needed Bilateral leg ultrasound done no acute finding/DVT --Full code status -- DVT prophylaxis Daily clinical Course; 04/28/21: CT scan of left ankle suggestive for complete destruction of left ankle joint with suggestive change of septic arthritis and osteomyelitis. Appreciate orthopedic and general surgery recommendation. Per Dr. Mistry patient might have Charcot joint. planned for arthrocentesis to rule out infectious process by ID. We will hold on empiric antibiotics for now. 04/29/21; Plan for CT-guided left ankle arthrocentesis today. Follow culture result, continue to hold antibiotics for now. Subjective Date of service: 04/29/21 Interval history: Patient seen and examined. Medical records and medication list reviewed. No acute event overnight noted by the RN. Patient denies any chest pain or difficulty breathing. Patient is tolerating diet. Continues to complains of left ankle pain Plan for CT-guided left ankle arthrocentesis today Discussed plan of care at bedside with patient. Objective - Exam Narrative Exam: General appearance: Present: mild distress, obese - EENT Eyes: Present: PERRL ENT: hearing intact, clear oral mucosa - Neck Neck: Present: supple, normal ROM - Respiratory Respiratory effort: normal Respiratory: bilateral: CTA - Cardiovascular Heart Sounds: Present: S1 & S2. Absent: rub, click - Extremities Extremities: pulses symmetrical, No edema. left LE: ankle pain, ankle swelling, foot stiffness, foot pain, foot swelling Peripheral Pulses: within normal limits - Abdominal General gastrointestinal: Present: soft, non-tender, non-distended, normal bowel sounds Male genitourinary: Present: normal - Integumentary Integumentary: Present: clear, warm, dry - Musculoskeletal Musculoskeletal: strength equal bilaterally, generalized weakness - Psychiatric Psychiatric: appropriate mood/affect, intact judgment & insight, cooperative - Neurologic Neurologic: CNII-XII intact, moves all extremities - Allied Health Allied health notes reviewed: nursing - Constitutional Vitals: Vital Signs - 12hr 04/29/21 04/29/21 06:01 11:27 Temperature 98.6 F 98.2 F Pulse Rate 90 86 Respiratory 18 20 Rate Blood Pressure 124/77 136/90 O2 Sat by Pulse 95 98 Oximetry - Labs CBC & Chem 7: 04/28/21 08:10 04/28/21 08:10
--- NOTE | 2021-04-29 16:24 | Operative Report ---
Operative Report Operative Report: EXAM: CT guided 20 gauge left ankle FNA and artherocentesis DATE: 04/29/2021 WORKERS COMPENSATION SPECIALIST: BALTA BOLES MD INDICATION: Left ankle fluid collection concerning for Charcot joint versus infection MEDICATIONS: Please see nursing report for full details. PROCEDURE: The risks, benefits, and alternatives were discussed with the patient; written informed consent was obtained. The patient was brought to the CT scanner and the left ankle was placed in a inverted medial position. CT scan was performed for scanning purposes. CT scan demonstrated fluid collection amenable in an area without overlying artery. Patient was prepped and draped in a sterile fashion. The area was infiltrated with lidocaine and afterwards an 18-gauge Franseen needle was passed into the left ankle joint space into the collection. CT scan was performed confirming position within the collection. I attempted to aspirate, but there is no fluid that was removed. Needle was repositioned a few more times and no fluid was obtained. At this point, I performed a biopsy/FNA by advancing a Franseen needle through the collection with aspiration. After this was performed, this was mixed with a small amount of saline and then sent to lab for culture. Band-Aid was applied. Patient tolerated procedure well. No immediate postp rocedural complications. FINDINGS: Curator CT was performed for localization purposes. 18-gauge needle was passed in the left ankle collection. IMPRESSION: CT-guided left ankle arthrocentesis CT-guided left ankle fine-needle aspiration
--- NOTE | 2021-04-29 16:24 | Post Operative Note ---
Date of procedure: 04/29/21 Pre-op diagnosis: Left ankle collection Post-op diagnosis: same Findings: Dry tap, therefore FNA was performed multiple times and sent for culture. Procedure: CT guided 20 gauge left ankle FNA and artherocentesis Anesthesia: local (w/ conscious sedation) Surgeon: BALTA BOLES Estimated blood loss: minimal Condition: stable Disposition: floor
[2021-04-29] MEDS: traZODone 50 MG TAB PO PRN (23:31)
[2021-04-30 04:56] VITALS: BP 124/88
--- NOTE | 2021-04-30 07:41 | Progress Note ---
Assessment and Plan Assessment and plan: -- Osteomyelitis with possible septic arthritis Blood culture negative Left foot x-ray done showed erosive changes of the left foot and ankle with soft tissue swelling. X-ray of the ankle left showed also extensive erosive changes possible osteomyelitis considered. CT scan of left ankle suggestive of possible septic arthritis with osteomyelitis Orthopedic and general surgery recommended no surgical intervention as this changes are apparently chronic ID consulted and recommended left ankle arthrocentesis and to hold antibiotics for now Consulted IR for arthrocentesis -- Hyperlipidemia Patient has a history of hyperlipidemia Resume statin Checked hemoglobin A1c - 6.3 -- Left ankle pain Pain management as needed Bilateral leg ultrasound done no acute finding/DVT --Full code status -- DVT prophylaxis Daily clinical Course; 04/28/21: CT scan of left ankle suggestive for complete destruction of left ankle joint with suggestive change of septic arthritis and osteomyelitis. Appreciate orthopedic and general surgery recommendation. Per Dr. Mistry patient might have Charcot joint. planned for arthrocentesis to rule out infectious process by ID. We will hold on empiric antibiotics for now. 04/29/21; Plan for CT-guided left ankle arthrocentesis today. Follow culture result, continue to hold antibiotics for now. 04/30/2021; CT-guided left ankle arthrocentesis was done by IR. There was dry tap, FNA was done and sample sent to lab. Will follow ID recommendations. Patient is off antibiotics for now. History Interval history: Patient was seen and evaluated this morning Patient said he does not have any pain and he wants to go home. Hospitalist Physical - Physical exam Narrative exam: Not in cardiopulmonary distress. The patient appeared well nourished and normally developed. Vital signs as documented. Head exam is unremarkable. No scleral icterus . Neck is without jugular venous distension, thyromegaly, or carotid bruits. Lungs are clear to auscultation. Cardiac exam reveals regular rate and Rhythm. Abdominal exam reveals normal bowel sounds, nontender, no organomegaly. Extremities deformity and swelling left joint. LABORER SHIPYARD: Alert and oriented 3. No focal weakness. - Constitutional Vitals: Temp Pulse Resp BP Pulse Ox 98.3 F 90 16 124/88 95 04/30/21 04:23 04/30/21 04:23 04/30/21 04:23 04/30/21 04:23 04/30/21 04:23 General appearance: Present: mild distress, obese Results - Labs CBC & Chem 7: 04/28/21 08:10 04/28/21 08:10 Labs: Laboratory Last Values WBC 6.6 K/mm3 (4.5-11.0) 04/28/21 08:10 RBC 4.41 M/mm3 (3.65-5.03) 04/28/21 08:10 Hgb 12.2 gm/dl (11.8-15.2) 04/28/21 08:10 Hct 36.0 % (35.5-45.6) 04/28/21 08:10 MCV 82 fl (84-94) L 04/28/21 08:10 MCH 28 pg (28-32) 04/28/21 08:10 MCHC 34 % (32-34) 04/28/21 08:10 RDW 15.3 % (13.2-15.2) H 04/28/21 08:10 Plt Count 360 K/mm3 (140-440) 04/28/21 08:10 Lymph % (Auto) 29.1 % (13.4-35.0) 04/28/21 08:10 [place] % (Auto) 6.9 % (0.0-7.3) 04/28/21 08:10 Eos % (Auto) 3.5 % (0.0-4.3) 04/28/21 08:10 Baso % (Auto) 0.6 % (0.0-1.8) 04/28/21 08:10 Lymph # (Auto) 1.9 K/mm3 (1.2-5.4) 04/28/21 08:10 [place] # (Auto) 0.5 K/mm3 (0.0-0.8) 04/28/21 08:10 Eos # (Auto) 0.2 K/mm3 (0.0-0.4) 04/28/21 08:10 Baso # (Auto) 0.0 K/mm3 (0.0-0.1) 04/28/21 08:10 Seg Neutrophils % 59.9 % (40.0-70.0) 04/28/21 08:10 Seg Neutrophils # 4.0 K/mm3 (1.8-7.7) 04/28/21 08:10 Sodium 136 mmol/L (137-145) L 04/28/21 08:10 Potassium 4.2 mmol/L (3.6-5.0) 04/28/21 08:10 Chloride 99.2 mmol/L (98-107) 04/28/21 08:10 Carbon Dioxide 27 mmol/L (22-30) 04/28/21 08:10 Anion Gap 14 mmol/L 04/28/21 08:10 BUN 8 mg/dL (9-20) L 04/28/21 08:10 Creatinine 0.6 mg/dL (0.8-1.3) L 04/28/21 08:10 Estimated GFR > 60 ml/min 04/28/21 08:10 BUN/Creatinine Ratio 13 % 04/28/21 08:10 Glucose 158 mg/dL (75-100) H 04/28/21 08:10 Hemoglobin A1c 6.3 % (4-6) H 04/26/21 13:59 Lactic Acid 1.80 mmol/L (0.7-2.0) 04/26/21 15:44 Calcium 9.4 mg/dL (8.4-10.2) 04/28/21 08:10 Total Bilirubin < 0.20 mg/dL (0.1-1.2) 04/28/21 08:10 AST 16 units/L (5-40) 04/28/21 08:10 ALT 16 units/L (7-56) 04/28/21 08:10 Alkaline Phosphatase 87 units/L (35-129) 04/28/21 08:10 Total Protein 7.8 g/dL (6.3-8.2) 04/28/21 08:10 Albumin 3.6 g/dL (3.9-5) L 04/28/21 08:10 Albumin/Globulin Ratio 0.9 % 04/28/21 08:10 Microbiology: Microbiology 04/27/21 00:19 Peripheral/Venous Blood Culture - Preliminary NO GROWTH AFTER 72 HOURS 04/27/21 00:14 Peripheral/Venous Blood Culture - Preliminary NO GROWTH AFTER 72 HOURS Velasquez/IV: Voiding Method Toilet Active Medications - Current Medications Current Medications: Generic Name Dose Route Start Last Admin Trade Name Freq PRN Reason Stop Dose Admin Acetaminophen 650 mg 04/27/21 00:29 Acetaminophen 325 Mg Tab PO Q4H PRN Pain MILD(1-3)/Fever >100.5/MCNALLY Al Hydrox/Mg Hydrox/Simethicone 30 ml 04/27/21 00:29 Alum-Mag Hydroxide-Simethicone 114-345-94sc/5ml Oral Liqd 30 Ml PO Q4H PRN Indigestion Atorvastatin Calcium 40 mg 04/27/21 22:00 04/29/21 21:00 Atorvastatin 40 Mg Tab PO 40 mg QHS DERECK Administration Heparin Sodium (Porcine) 5,000 unit 04/27/21 10:00 04/29/21 20:59 Heparin 5,000 Unit/1 Ml Vial SUB-Q 5,000 unit Q12HR DERECK Administration Hydralazine HCl 5 mg 04/27/21 00:33 Hydralazine 20 Mg/1 Ml Inj IV Q4H PRN Hypertension Hydromorphone HCl 0.5 mg 04/27/21 11:00 04/29/21 21:00 Hydromorphone 1 Mg/1 Ml Inj IV 0.5 mg Q3H PRN Administration Pain , Severe (7-10) Magnesium Hydroxide 30 ml 04/27/21 00:29 04/27/21 11:08 Magnesium Hydroxide (Mom) Oral Liqd Udc PO 30 ml Q4H PRN Administration Constipation Ondansetron HCl 4 mg 04/27/21 00:29 Ondansetron 4 Mg/2 Ml Inj IV Q8H PRN Nausea And Vomiting Sodium Chloride 10 ml 04/27/21 00:29 04/27/21 21:17 Sodium Chloride 0.9% 10 Ml Flush Syringe IV 10 ml PRN PRN Administration LINE FLUSH Tramadol HCl 50 mg 04/27/21 00:33 Tramadol 50 Mg Tab PO Q4H PRN Pain, Moderate (4-6) Trazodone HCl 50 mg 04/27/21 00:33 04/29/21 23:31 Trazodone 50 Mg Tab PO 50 mg QHS PRN Administration Insomnia
[2021-04-30] MEDS: HYDROmorphone 1 MG/1 ML INJ IV PRN (08:44)
--- NOTE | 2021-04-30 08:56 | Progress Note ---
Assessment and Plan left ankle swelling, most likely non-infectious would order EMG-NCV study to r/o diabetic neuropathy with Charcot's joint Subjective Date of service: 04/30/21 Interval history: w/u thus far negative for infection, most likely Charcot's Joint, would get neurology evaluation with nerve testing Objective Vital signs: Vital Signs - 12hr 04/29/21 04/30/21 21:10 04:23 Temperature 97.4 F L 98.3 F Pulse Rate 96 H 90 Respiratory 16 16 Rate Blood Pressure 128/83 124/88 O2 Sat by Pulse 95 95 Oximetry - Labs CBC & BMP: 04/28/21 08:10 04/28/21 08:10
--- NOTE | 2021-04-30 10:00 | Discharge Summary ---
Providers - Providers Date of Admission: 04/27/21 00:04 Date of discharge: 04/30/21 Attending physician: PER SULLIVAN MD 04/27/21 00:36 Consult to Physician [CONS] Routine Comment: Consulting Provider: EDMUND SELF Physician Instructions: Reason For Exam: osteomylitis 04/27/21 12:07 Consult to Physician [CONS] Routine Comment: Consulting Provider: JAN LINTON Physician Instructions: Reason For Exam: osteomylitis 04/28/21 16:18 Consult to Interventional Radiology [CONS] Routine Consulting Provider: BALTA SCHROEDER Reason For Exam: left ankle arthrocentesis Place consult to:: DR. SCHROEDER OFFICE Notified:: OFFICE Phone number called:: [phone] Was contact made?: Yes If yes, spoke with:: ROBIN Time called:: 10:22 04/30/21 07:42 Physical Therapy Evaluation and Treat [CONS] Routine Comment: Reason For Exam: evaluate and treat Hospitalization Reason for admission: left ankle pain, Charcot's disease Condition: Stable Pertinent studies: Arthrocentesis Hospital course: History of present illness: Patient is a 55-year-old male who presents emergency room with complaints of left foot swelling. Patient's left foot swelling been going on for 3 weeks. Patient states it is worsening. Patient states the left foot is warm to touch and is having extreme pain. Patient states the pain is from his upper ankle down to his foot. Patient states that his primary care evaluate him today and sent him here to be evaluated. Patient states the pain is an 8 out of 10. He states the pain is better with rest and worse with movement and palpation. Patient denies fever or chills. Patient denies nausea vomiting. Patient denies calf. Patient denies chest pain or shortness of breath. ED work-up shows a WBC 10.6 hemoglobin 13.7 platelets 393 hemoglobin A1c 6.3 and lactic acid 1.8. Patient seen in ED at bedside. He reported pain level of 10/10 on his left ankle and foot. Patient is started on vancomycin and Zosyn ID consulted. Patient reported a saw that he had surgery on the left ankle 2013 and 2015. I reviewed the patient medical record vital signs and the medication record.Left foot x-ray done showed erosive changes of the left foot and ankle with soft tissue swelling. X-ray of the ankle left showed also extensive erosive changes possible osteomyelitis considered. Hospital course -- Osteomyelitis with possible septic arthritis Blood culture negative Left foot x-ray done showed erosive changes of the left foot and ankle with soft tissue swelling. X-ray of the ankle left showed also extensive erosive changes possible osteomyelitis considered. CT scan of left ankle suggestive of possible septic arthritis with osteomyelitis Orthopedic and general surgery recommended no surgical intervention as this changes are apparently chronic ID consulted and recommended left ankle arthrocentesis and to hold antibiotics f or now Consulted IR for arthrocentesis -- Hyperlipidemia Patient has a history of hyperlipidemia Resume statin Checked hemoglobin A1c - 6.3 -- Left ankle pain Pain management as needed Bilateral leg ultrasound done no acute finding/DVT --Full code status -- DVT prophylaxis Daily clinical Course; 04/28/21: CT scan of left ankle suggestive for complete destruction of left ankle joint with suggestive change of septic arthritis and osteomyelitis. Appreciate orthopedic and general surgery recommendation. Per Dr. Mistry patient might have Charcot joint. planned for arthrocentesis to rule out infectious process by ID. We will hold on empiric antibiotics for now. 04/29/21; Plan for CT-guided left ankle arthrocentesis today. Follow culture result, continue to hold antibiotics for now. 04/30/2021; CT-guided left ankle arthrocentesis was done by IR. There was dry tap, FNA was done and sample sent to lab. Will follow ID recommendations. Patient is off antibiotics for now. Patient was seen and evaluated this morning, patient said he does not have pain and he wants to go home. I discussed with Dr. Mcelroy and he is okay to discharge the patient, patient does not need antibiotics. Patient likely have Charcot joints. Patient was seen by orthopedics and recommend no further work- up needed. Patient was hemodynamically stable and discharged home. Management plan was discussed in detail with the patient and was in agreement with the plan of care. Disposition: DC-01 TO HOME OR SELFCARE Final Discharge Diagnosis (Prints w/discharge instructions): Charcot's disease. Left ankle pain Time spent for discharge: 35 minutes - Discharge Diagnoses (1) Foot pain, left Status: Acute (2) Left ankle pain Status: Acute Qualifiers: Chronicity: acute Qualified Code(s): M25.572 - Pain in left ankle and joints of left foot (3) Swelling of left lower extremity Status: Acute Core Measure Documentation - Palliative Care Palliative Care/ Comfort Measures: Not Applicable - Core Measures Any of the following diagnoses?: none Exam - Physical Exam Narrative exam: Not in cardiopulmonary distress. The patient appeared well nourished and normally developed. Vital signs as documented. Head exam is unremarkable. No scleral icterus . Neck is without jugular venous distension, thyromegaly, or carotid bruits. Lungs are clear to auscultation. Cardiac exam reveals regular rate and Rhythm. Abdominal exam reveals normal bowel sounds, nontender, no organomegaly. Extremities deformity left ankle joint and swelling of the left foot. MANUFACTURING SUPERVISOR: Alert and oriented 3. No focal weakness. - Constitutional Vitals: Temp Pulse Resp BP Pulse Ox 98.3 F 90 16 124/88 95 04/30/21 04:23 04/30/21 04:23 04/30/21 04:23 04/30/21 04:04/30/21 09:09 Plan Activity: no restrictions Weight Bearing Status: Full Weight Bearing Diet: regular Follow up with: JUNO ROMEO [Other] - 7 Days Prescriptions: Ibuprofen [Motrin 800 MG tab] 800 mg PO Q8HR PRN #30 tablet PRN Reason: Pain Acetaminophen/Codeine [Tylenol /Codeine # 3 tab] 1 tab PO Q6H PRN #20 tab PRN Reason: Pain traMADoL [Ultram 50 MG tab] 50 mg PO Q4H PRN #20 tablet PRN Reason: Pain, Moderate (4-6)
--- NOTE | 2021-04-30 11:10 | Progress Note ---
Assessment and Plan Cultures: 04/27/2021 blood culture: No growth A/P: 55-year-old male with hyperlipidemia, right total knee arthroplasty admitted with: #Acute on chronic left ankle swelling with complete destruction of the ankle joint noted on imaging: history of left ankle hardware infection that developed after his surgical intervention by podiatry which eventually required hardware removal back in 2016 has had chronic left ankle swelling and pain which acutely worsened recently with trivial trauma while getting off a ladder. Etiology Charcot joint versus indolent chronic septic arthritis. Recs: Hold off on any antibiotics for now Arthrocentesis without fluid for analysis. Consider this plus afebrile and normal white count doubt acute infection. OK for DC from ID perspective. Ankit Mcelroy MD [facility] O: [phone] F: [phone] Subjective Date of service: 04/30/21 Interval history: Afebrile, normal white count. Arthrocentesis was performed, however it was a dry tap. Objective - Exam Narrative Exam: Physical Exam: Constitutional: Alert, cooperative. No acute distress Head, Ears, Nose: Normocephalic, atraumatic. External ears, nose normal Eyes: Conjunctivae/corneas clear. No icterus. No ptosis. Neck: Supple, no meningeal signs Oral: dentition fair, no thrush Cardiovascular: S1, S2 normal. Respiratory: Good air entry, clear to auscultation bilaterally GI: Soft, non-tender; bowel sounds normal. No peritoneal signs Musculoskeletal: Left ankle with swelling, no significant warmth. There is hyperkeratotic skin present, no open wound. Skin: No rash or abscess Hem/Lymphatic: No palpable cervical or supraclavicular nodes. Psych: Mood ok. Affect normal Neurological: Awake, alert, oriented. No gross abnormality - Constitutional Vitals: Vital Signs Temp Pulse Resp BP Pulse Ox 98.3 F 90 16 124/88 95 04/30/21 04:23 04/30/21 04:23 04/30/21 04:23 04/30/21 04:23 04/30/21 09:09 Temperature -Last 24 Hours Temperature 98.3 F Temperature 97.4 F Temperature 98.0 F Temperature 98.2 F - Labs CBC & Chem 7: 04/28/21 08:10 04/28/21 08:10
--- NOTE | 2021-05-17 15:24 | Cat Scan Report ---
PLEASE SEE OPERATIVE REPORT FROM 04-29-21 MTDD
== END 2021-04-30 15:30 | disposition home or self-care (01) | DRG 540 ==
LOC: ED 12:29 → 3A 04-27 00:04 → OBSVTOIN 04-27 00:04 → 3B-SURG 04-27 00:24 → 3A 04-28 15:31
PROVIDERS: ADMIT Internal Medicine Geriatric Medicine; ATTEND Internal Medicine
PROC: 0S9G3ZX Drainage of Left Ankle Joint, Percutaneous Approach, Diagnostic (ICD-10-PCS; principal; 2021-04-29)
DX: M86.8X7 Other osteomyelitis, ankle and foot (principal); M00.9 Pyogenic arthritis, unspecified; E78.5 Hyperlipidemia, unspecified; E78.00 Pure hypercholesterolemia, unspecified; Z96.651 Presence of right artificial knee joint; F17.200 Nicotine dependence, unspecified, uncomplicated; Z83.3 Family history of diabetes mellitus; Z82.49 Family history of ischemic heart disease and other diseases of the circulatory system
CPT/HCPCS: 10160; 36415; 77012; 80053; 82140; 83036; 85025; 87040; 87116; 96365; 96375; G0378; J1170; J1644; J2250; J2270; J2405; J2543; J3010; J3370; J7040; Q9967